=== PATIENT | male | born 1955 | race Caucasian/White ===

== ENCOUNTER 2018-04-08 08:57 | Day surgery (SDC) | payer BC ==
[~2018-04-08] VITALS: Ht 185.4 cm; Wt 109.5 kg
[2018-04-08 10:18] VITALS: BP 144/100; PULSE 69; TEMP 97.7
[2018-04-08] MEDS ORDERED: ASPIRIN 81M81 MG/TA2 PO (10:41)
[2018-04-08] MEDS ORDERED: NORVASC 5MG5 MG/TAB PO (10:42)
[2018-04-08 11:45] VITALS: BP 132/91; PULSE 73; TEMP 97.3
[2018-04-08 12:00] VITALS: BP 130/88; PULSE 67
== END 2018-04-08 12:27 | disposition home or self-care (01) ==
LOC: SDCO 08:57
DX: Z12.11 Encounter for screening for malignant neoplasm of colon (principal); K64.1 Second degree hemorrhoids; K57.30 Diverticulosis of large intestine without perforation or abscess without bleeding; I10 Essential (primary) hypertension; Z88.0 Allergy status to penicillin
CPT/HCPCS: J2250; J3010; J7030